=== PATIENT | male | born 1980 | race Caucasian/White ===

== ENCOUNTER 2019-10-12 21:24 | Emergency (ER) | payer SELFPAY ==
--- NOTE | 2019-10-12 22:30 | NUR ---
PATIENT LEFT WITHOUT BEING SEEN BY DR. COLBY. NO FURTHER CARE PROVIDED FOR PATIENT.
== END 2019-10-12 22:30 | disposition left against medical advice (07) ==
LOC: MED 21:24
DX: Z53.21 Procedure and treatment not carried out due to patient leaving prior to being seen by health care provider (principal)